=== PATIENT | female | born 1955 | race Caucasian/White ===

== ENCOUNTER 2019-11-13 06:07 | Emergency (ER) | payer MEDICAID ==
[~2019-11-13] VITALS: Ht 147.3 cm; Wt 68.0 kg
[2019-11-13] MEDS ORDERED: PANTOPRAZOLE SODIUM 40 MG/VIAL IV STA (07:51)
[2019-11-13 08:45] LABS: BASOPHILS % 0.7 % (0.0-2.0); EOSINOPHILS % 3.7 % (0.0-5.0); HEMATOCRIT. 39.7 % (36.0-48.0); HEMOGLOBIN. 13.5 g/dL (12.0-16.0); LYMPHOCYTES % 15.6 % (20.0-50.0); MEAN CORPUSCULAR HEMOGLOBIN 33.1 pg (28.0-32.0); MEAN CORPUSCULAR VOLUME 97.6 fL (81.0-99.0); MEAN PLATELET VOLUME 7.9 fl (7.4-10.4); PLATELET 250 x1000/uL (130-400); RED BLOOD CELL COUNT 4.07 mill/uL (4.2-5.4); RED CELL DISTRIBUTION WIDTH 13.6 % (11.6-14.6)
[2019-11-13 08:50] LABS: CHLORIDE 107 mEq/L (98-107)
[2019-11-13 08:57] LABS: PROTHROMBIN TIME 10.7 sec (9.6-11.0)
[2019-11-13 18:05] VITALS: BP 120/73
== END 2019-11-13 18:18 | disposition short-term general hospital (02) ==
LOC: ER 06:07 → CANBEDREQ 13:50 → ER 18:18
DX: K21.9 Gastro-esophageal reflux disease without esophagitis (principal); K56.609 Unspecified intestinal obstruction, unspecified as to partial versus complete obstruction; K92.2 Gastrointestinal hemorrhage, unspecified; I10 Essential (primary) hypertension; Z90.49 Acquired absence of other specified parts of digestive tract; Z98.890 Other specified postprocedural states; Z88.6 Allergy status to analgesic agent; Z88.5 Allergy status to narcotic agent
CPT/HCPCS: 36415; 74176; 80053; 83690; 85025; 85610; 86850; 86900; 86901; 96374; 99285; C9113; Z7610

== ENCOUNTER 2024-03-04 01:06 | Inpatient (IN) | payer MEDICAID, OTHER ==
[~2024-03-04] VITALS: Ht 160 cm; Wt 68.0 kg
[2024-03-04 03:10] LABS: BASOPHILS % 1.2 % (0.0-2.0); EOSINOPHILS % 4.5 % (0.0-5.0); HEMATOCRIT. 37.3 % (36.0-48.0); HEMOGLOBIN. 13.1 g/dL (12.0-16.0); LYMPHOCYTES % 24.3 % (20.0-50.0); MEAN CORPUSCULAR HEMOGLOBIN 34.2 pg (28.0-32.0); MEAN CORPUSCULAR VOLUME 97.8 fL (81.0-99.0); MEAN PLATELET VOLUME 8.4 fl (7.4-10.4); MONOCYTES % 7.7 % (2.0-8.0); NEUTROPHILS % 62.3 % (40.0-76.0); PLATELET 266 x1000/uL (130-400); RED BLOOD CELL COUNT 3.82 mill/uL (4.2-5.4); RED CELL DISTRIBUTION WIDTH 13.7 % (11.6-14.6); WHITE BLOOD COUNT 6.5 x1000/uL (4.5-11.0)
[2024-03-04 03:34] LABS: TROPONIN I HIGH SENSITIVITY < 4 ng/L (3.0-34)
[2024-03-04 04:05] LABS: CHLORIDE 105 mEq/L (98-107); POTASSIUM 3.9 mEq/L (3.5-5.1); SODIUM 139 mEq/L (136-145)
[2024-03-04 04:06] LABS: CALCIUM 9.4 mg/dL (8.7-10.4); CARBON DIOXIDE 27 mEq/L (21-32)
[2024-03-04 04:11] LABS: CREATININE 0.7 mg/dL (0.6-1.0); GLUCOSE 99 mg/dL (70-105); UREA NITROGEN BLOOD 9 mg/dL (9-23)
[2024-03-04 04:13] LABS: ALANINE AMINOTRANSFERASE 22 IU/L (10-49); ALBUMIN 4.3 g/dL (3.2-4.8); ASPARTATE AMINOTRANSFERASE 15 IU/L (<34); BILIRUBIN TOTAL 0.4 mg/dL (0.1-1.0); PROTEIN TOTAL 6.9 g/dL (6.0-8.3)
[2024-03-04] MEDS: CLOPIDOGREL 75MG TABLET PO ONE (04:33)
[2024-03-04] MEDS: ASPIRIN 325MG TABLET PO ONE (04:33)
[2024-03-04] MEDS ORDERED: DEXTROSE 50% WATER 50ML SYRINGE IV PRN (05:45)
[2024-03-04] MEDS ORDERED: ACETAMINOPHEN 325MG TABLET PO PRN ×2 (05:45)
[2024-03-04] MEDS ORDERED: ONDANSETRON HCL 4MG/2ML INJ IV PRN (05:45)
[2024-03-04] MEDS ORDERED: IPRATROPIUM/ALBUTEROL 0.5-3(2.5)MG/3ML NEB HHN PRN (05:45)
[2024-03-04] MEDS ORDERED: HYDRALAZINE 20MG/ML VIAL IV PRN (05:45)
[2024-03-04] MEDS ORDERED: DEXT 5%/0.2% NACL 1,000 ML IV SCH (06:15)
[2024-03-04] MEDS ORDERED: INSULIN LISPRO 100 UNITS/ML SUBCUT SCH (08:09)
[2024-03-04] MEDS ORDERED: BLOOD SUGAR DIAGNOSTIC STRIP TEST SCH (08:09)
[2024-03-04] MEDS: IOHEXOL-350 100 ML BOTTLE ONE (08:14)
[2024-03-04 09:23] LABS: PARTIAL THROMBOPLASTIN TIME 28.6 sec (23.4-31.0); PROTHROMBIN TIME 11.1 sec (9.6-11.0)
[2024-03-04 09:46] VITALS: BP_SYST 130; BP_DIAS 60; BP_DIAS 63; PULSE 62; RESP 18; TEMP 97.2
[2024-03-04] MEDS ORDERED: BENA-8 PO (09:56)
[2024-03-04 10:28] LABS: CREATINE KINASE MB FRACTION 1.8 ng/mL (0.5-3.6)
[2024-03-04 10:31] LABS: CREATINE KINASE 116 IU/L (34-145)
[2024-03-04 10:33] LABS: PHOSPHORUS 4.3 mg/dL (2.5-4.9)
[2024-03-04 11:29] LABS: FOLIC ACID (FOLATE) SERUM > 20.00 ng/mL (>5.38)
[2024-03-04] MEDS: OMEPRAZOLE 20MG CAPSULE EXTENDED RELEASE PO SCH (11:47)
[2024-03-04] MEDS: LISINOPRIL 20MG TABLET PO SCH (11:47)
[2024-03-04 12:00] VITALS: BP 135/72; PULSE 70; RESP 18; TEMP 97.3
[2024-03-04 12:58] LABS: VITAMIN B12 SERUM 338 pg/mL (211-911)
[2024-03-04 16:00] VITALS: BP 108/53; PULSE 60; RESP 16; TEMP 97
[2024-03-04 17:16] LABS: CREATINE KINASE MB FRACTION 1.5 ng/mL (0.5-3.6)
[2024-03-04 20:00] VITALS: BP 118/58; PULSE 63; RESP 18; TEMP 97
[2024-03-04] MEDS: ATORVASTATIN CALCIUM 40MG TABLET PO SCH (21:41)
[2024-03-04] MEDS: AMITRIPTYLINE 10MG TABLET PO SCH (21:41)
[2024-03-05] VITALS: BP 115/52; PULSE 64; RESP 18; TEMP 97
[2024-03-05 00:24] LABS: CLARITY URINE CLEAR (CLEAR); COLOR URINE YELLOW (YELLOW); GLUCOSE URINE NEGATIVE (NEGATIVE); KETONES URINE NEGATIVE (NEGATIVE); LEUKOCYTE ESTERASE URINE NEGATIVE (NEGATIVE); NITRITE URINE NEGATIVE (NEGATIVE); OCCULT BLOOD URINE NEGATIVE (NEGATIVE); PH URINE 5.5 (4.5-8.0); PROTEIN URINE NEGATIVE (NEGATIVE); SPECIFIC GRAVITY URINE 1.011 (1.005-1.030); UROBILINOGEN URINE 0.2 E.U./dL (0.2-1.0)
[2024-03-05 00:33] LABS: *AMPHETAMINES SCREEN URINE NEGATIVE (NEGATIVE); *BARBITURATES SCREEN URINE NEGATIVE (NEGATIVE); *BENZODIAZEPINES SCREEN URINE NEGATIVE (NEGATIVE); *COCAINE SCREEN URINE NEGATIVE (NEGATIVE); CANNABINOID URINE SCREEN NEGATIVE (NEGATIVE); ECSTASY MDMA SCREEN URINE NEGATIVE (NEGATIVE); METHADONE URINE SCREEN NEGATIVE (NEGATIVE); OPIATES URINE SCREEN NEGATIVE (NEGATIVE); PHENCYCLIDINE URINE SCREEN NEGATIVE (NEGATIVE)
[2024-03-05 04:00] VITALS: BP 118/22; PULSE 66; RESP 18; TEMP 97
[2024-03-05 07:24] LABS: CHLORIDE 106 mEq/L (98-107); POTASSIUM 3.1 mEq/L (3.5-5.1); SODIUM 140 mEq/L (136-145)
[2024-03-05 07:26] LABS: CALCIUM 9.6 mg/dL (8.7-10.4); CARBON DIOXIDE 27 mEq/L (21-32)
[2024-03-05 07:31] LABS: CREATININE 0.6 mg/dL (0.6-1.0); GLUCOSE 91 mg/dL (70-105)
[2024-03-05 07:32] LABS: LDL CHOLESTEROL 134 mg/dL (5-100); TRIGLYCERIDE 72 mg/dL (0-150); UREA NITROGEN BLOOD 7 mg/dL (9-23)
[2024-03-05 07:33] LABS: ALANINE AMINOTRANSFERASE 22 IU/L (10-49); ALBUMIN 4.2 g/dL (3.2-4.8); ASPARTATE AMINOTRANSFERASE 14 IU/L (<34); CHOLESTEROL 181 mg/dL (<200); EOSINOPHILS % 8.6 % (0.0-5.0); HDL CHOLESTEROL 59 mg/dL (>65); HEMATOCRIT. 39.7 % (36.0-48.0); HEMOGLOBIN. 13.6 g/dL (12.0-16.0); LYMPHOCYTES % 34.6 % (20.0-50.0); MEAN CORPUSCULAR HEMOGLOBIN 33.6 pg (28.0-32.0); MEAN CORPUSCULAR HGB CONC 34.4 g/dL (31.0-37.0); MEAN CORPUSCULAR VOLUME 97.8 fL (81.0-99.0); MEAN PLATELET VOLUME 8.4 fl (7.4-10.4); NEUTROPHILS % 47.8 % (40.0-76.0); PLATELET 260 x1000/uL (130-400); RED BLOOD CELL COUNT 4.06 mill/uL (4.2-5.4); RED CELL DISTRIBUTION WIDTH 13.7 % (11.6-14.6); WHITE BLOOD COUNT 5.1 x1000/uL (4.5-11.0)
[2024-03-05 07:34] LABS: BILIRUBIN TOTAL 1.1 mg/dL (0.1-1.0); PROTEIN TOTAL 6.8 g/dL (6.0-8.3)
[2024-03-05 07:37] LABS: THYROID STIMULATING HORMONE 0.56 uIU/mL (0.55-4.78)
[2024-03-05 08:00] VITALS: BP 120/57; PULSE 55; RESP 18; TEMP 97.4
[2024-03-05] MEDS: ASPIRIN 81MG EC TABLET PO SCH (09:09)
[2024-03-05 12:00] VITALS: BP 109/54; PULSE 62; RESP 18; TEMP 98.2
[2024-03-05 16:00] VITALS: BP 115/70; PULSE 66; RESP 16; RESP 18; TEMP 97.9
[2024-03-05 20:00] VITALS: BP 113/58; PULSE 73; RESP 19; TEMP 98.1
[2024-03-06] VITALS (8 sets, daily range): BP systolic 101–128; BP diastolic 52–72; PULSE 59–78; RESP 18–22; TEMP 96.9–98.5
[2024-03-06] MEDS: FAMOTIDINE 20MG TABLET PO SCH (09:34)
[2024-03-06] MEDS: ATORVASTATIN CALCIUM 40MG TABLET PO SCH (22:12)
[2024-03-07] VITALS: BP 129/86; PULSE 73; RESP 18; TEMP 98.6
[2024-03-07 04:00] VITALS: BP 128/70; PULSE 70; RESP 17; TEMP 98.5
[2024-03-07 13:53] VITALS: BP 128/66; PULSE 86; TEMP 97.3; O2SAT 99
== END 2024-03-07 15:15 | disposition home or self-care (01) | DRG 392 ==
LOC: ER 01:06 → 5WST 04:30 → EDBEDREQTM 04:43 → EDBEDREQ 04:43 → 7EST 09:22
PROVIDERS: ADMIT Hospitalist; ATTEND Hospitalist
DX: K52.9 Noninfective gastroenteritis and colitis, unspecified (principal); G81.94 Hemiplegia, unspecified affecting left nondominant side; I65.01 Occlusion and stenosis of right vertebral artery; R53.1 Weakness; E78.00 Pure hypercholesterolemia, unspecified; I10 Essential (primary) hypertension; Z88.6 Allergy status to analgesic agent; Z90.49 Acquired absence of other specified parts of digestive tract; Z86.73 Personal history of transient ischemic attack (TIA), and cerebral infarction without residual deficits
CPT/HCPCS: 36415; 70496; 70498; 70551; 71045; 80053; 80061; 80305; 81003; 82550; 82553; 82607; 82746; 83036; 83735; 84100; 84443; 84484; 85025; 93005; 93306; 93970; 97161; 99291; Q9967

== ENCOUNTER 2025-10-17 15:44 | Emergency (ER) | payer OTHER ==
[~2025-10-17] VITALS: Ht 152.4 cm; Wt 54.0 kg
[~2025-10-17 15:44] MED LIST: BENA-8 PO
[2025-10-17 15:51] VITALS: O2SAT 98
[2025-10-17] MEDS ORDERED: IBUPROFEN 600MG TABLET PO ONE (16:15)
[2025-10-17] MEDS ORDERED: CYCL5TAB3 MT (18:12)
[2025-10-17] MEDS ORDERED: IBUP-1455 MT (18:12)
[2025-10-17 18:59] VITALS: BP 147/71; PULSE 72; RESP 18; TEMP 36.7; O2SAT 98
== END 2025-10-17 19:00 | disposition home or self-care (01) ==
LOC: ER 15:44
DX: I10 Essential (primary) hypertension (principal); Z90.49 Acquired absence of other specified parts of digestive tract; Z79.899 Other long term (current) drug therapy; Z88.5 Allergy status to narcotic agent; V89.2XXA Person injured in unspecified motor-vehicle accident, traffic, initial encounter; Y93.89 Activity, other specified; Y92.410 Unspecified street and highway as the place of occurrence of the external cause; Y99.8 Other external cause status
CPT/HCPCS: 72128; 72131; 72170; 73030; 99284